=== PATIENT | male | born 1975 | race Caucasian/White ===

== ENCOUNTER → 2017-03-01 | Day surgery (SDC) | payer OTHER ==
[~2017-03-01] VITALS: Ht 175.3 cm; Wt 74.8 kg
[~2017-03-01] MED LIST: AMIT25TA9; BSP5T; CLON0.5T3 PO; CYCL10TA9 PO; GLYCOPYRROLATE 0.2 MG/ML (ROBINUL) 2 ML VIAL ONE; HURRICAINE EXT TUBE (BENZOCAINE) ONE; HURRICAINE EXT TUBE (BENZOCAINE) XX PRN; HYDR-3812; HYDR1TAB PO; LACTATED RINGERS 1,000 ML IV SCH; LINA145C PO; LORA10CA PO; METH4TAB PO; MIDAZOLAM 2 MG/2 ML (VERSED) VIAL ONE; MMT17NA NS; PANT40TA2 PO; PANT40TA3; SUCCINYLCHOLINE INJ 100 MG/5 ML SYR ONE; SUCR1TAB36 PO; TRZ50T PO; fluticasone; inhaler; klonopin; proPOfol 200 MG/20 ML (DIPRIVAN) VIAL IV ONE; trazodone
--- NOTE | 2017-03-01 10:54 | ED GI ---
General Chief Complaint: Abdominal/GI Problems Stated Complaint: FEELS LIKE SOMETHING LODGED IN THROAT Nursing Triage Note: WAS EATING GUMMY WORMS/BEARS ON TUESDAY FELT LIKE THEY DID NOT GOT ALL WAY DOWN. WAS SEEN IN [facility] ER AT THAT TIME,BUT CON'T TO HAVE FEELING LIKE PILLS AND FOOD NOT GOING ALL THE WAY DOWN Sepsis Screen: No Definite Risk Source of Information: Patient Exam Limitations: No Limitations History of Present Illness Time Seen By Provider: 10:52 Initial Comments To ER with esophageal foreign body sensation for 2 days. He was eating gummy bears on 02/27/17 in the evening. He felt as though they got stuck in his esophagus and when go down. About 5 hours later he went to the emergency room at [facility] where he was given some IV medications unknown what and a GI cocktail which temporarily relieved his symptoms. However he still feels as though he has difficulty with swallowing even with liquids such as water. States he feels like it gets stuck in his mid chest before going on down. He's never had this problem before. He does not report GERD symptoms. Timing/Duration: 1-2 Days Severity/Quality: Moderate Radiation: No Radiation Activities at Onset: None Associated Symptoms: No Nausea/Vomiting Allergies and Home Medications Allergies Coded Allergies: doxepin (Verified Allergy, Unknown, 03/01/17) Home Medications Hydrocodone/Acetaminophen 1 Each Tablet, #40 (Reported) Pantoprazole Sodium 40 Mg Tablet.dr, 40 MG PO DAILY, #60 Ref 3 take twice a day for two weeks and then once a day after that. Prescribed by: AMPARO MORTENSEN on 03/01/17 1345 Sucralfate 1 Gm Tablet, 1 GM PO QID, #120 Prescribed by: AMPARO MORTENSEN on 03/01/17 1345 Review of Systems Constitutional: see HPI EENTM: No Symptoms Reported Respiratory: No Symptoms Reported Cardiovascular: No Symptoms Reported Gastrointestinal: No Symptoms Reported Genitourinary: No Symptoms Reported Skin: no symptoms reported Psychiatric/Neurological: No Symptoms Reported Endocrine: No Symptoms Reported Hematologic/Lymphatic: No Symptoms Reported Past Qrnfhfo-Fcfima-Hxones Hx Patient Social History Recent Foreign Travel: No Contact w/Someone Who Travel: No Recent Infectious Disease Expo: No Seasonal Allergies Seasonal Allergies: Yes Surgeries HX Surgeries: No Respiratory Hx Respiratory Disorders: Yes (mild asthma) Respiratory Disorders: Asthma Cardiovascular Hx Cardiac Disorders: No Neurological Hx Neurological Disorders: No Genitourinary Hx Genitourinary Disorders: No Gastrointestinal Hx Gastrointestinal Disorders: Yes Gastrointestinal Disorders: Chronic Constipation Musculoskeletal Hx Musculoskeletal Disorders: No Endocrine Hx Endocrine Disorders: No HEENT HX ENT Disorders: Yes (SINUSITIS) Cancer Hx Cancer: No Psychosocial Hx Psychiatric Problems: Yes (EXTENSIVE PSYCH ISSUES--SELF DC'D ALL MEDICATIONS 3 MONTHS AGO. ) Integumentary HX Skin/Integumentary Disorder: No Blood Transfusions Hx Blood Disorders: No Physical Exam Vital Signs VS - Last 72 Hours, by Label 03/01/17 10:31 Temp 97.9 Pulse 80 Resp 18 B/P (MAP) 124/75 Pulse Ox 98 Capillary Refill : Less Than 3 Seconds General Appearance: WD/WN, no apparent distress HEENT: PERRL/EOMI, normal ENT inspection Neck: non-tender, full range of motion Respiratory: no respiratory distress, no accessory muscle use Cardiovascular: regular rate, rhythm, no murmur Gastrointestinal: normal bowel sounds, non tender, soft Extremities: normal range of motion, non-tender Neurologic/Psychiatric: alert, normal mood/affect, oriented x 3 Skin: normal color, warm/dry Progress/Results/Core Measures Results/Orders Lab Results Laboratory Tests Test 03/01/17 11:24 Range/Units White Blood Count 11.3 H 4.3-11.0 10^3/uL Red Blood Count 5.45 4.35-5.85 10^6/uL Hemoglobin 16.4 13.3-17.7 G/DL Hematocrit 48 40-54 % Mean Corpuscular Volume 89 80-99 FL Mean Corpuscular Hemoglobin 30 25-34 PG Mean Corpuscular Hemoglobin Concent 34 32-36 G/DL Red Cell Distribution Width 13.1 10.0-14.5 % Platelet Count 328 130-400 10^3/uL Mean Platelet Volume 9.1 7.4-10.4 FL Neutrophils (%) (Auto) 72 42-75 % Lymphocytes (%) (Auto) 21 12-44 % Monocytes (%) (Auto) 7 0-12 % Eosinophils (%) (Auto) 1 0-10 % Basophils (%) (Auto) 0 0-10 % Neutrophils # (Auto) 8.1 H 1.8-7.8 X 10^3 Lymphocytes # (Auto) 2.3 1.0-4.0 X 10^3 Monocytes # (Auto) 0.8 0.0-1.0 X 10^3 Eosinophils # (Auto) 0.1 0.0-0.3 10^3/uL Basophils # (Auto) 0.0 0.0-0.1 10^3/uL Sodium Level 139 135-145 MMOL/L Potassium Level 3.9 3.6-5.0 MMOL/L Chloride Level 102 98-107 MMOL/L Carbon Dioxide Level 29 21-32 MMOL/L Anion Gap 8 5-14 MMOL/L Blood Urea Nitrogen 13 7-18 MG/DL Creatinine 1.14 0.60-1.30 MG/DL Estimat Glomerular Filtration Rate > 60 BUN/Creatinine Ratio 11 Glucose Level 102 70-105 MG/DL Calcium Level 9.7 8.5-10.1 MG/DL Total Bilirubin 0.9 0.1-1.0 MG/DL Aspartate Amino Transf (AST/SGOT) 15 5-34 U/L Alanine Aminotransferase (ALT/SGPT) 13 0-55 U/L Alkaline Phosphatase 60 40-136 U/L Total Protein 7.7 6.4-8.2 GM/DL Albumin 4.9 H 3.2-4.5 GM/DL My Orders Orders - SEINA TAYLOR APRN Comprehensive Metabolic Panel (03/01/17 11:17) Cbc With Automated Diff (03/01/17 11:17) Succinylcholine Injection (Succinylcholi (03/01/17 11:24) Propofol Injection (Diprivan Injection) (03/01/17 11:24) Midazolam Injection (Versed Injection) (03/01/17 11:24) Vital Signs/I&O Vital Sign - Last 12Hours 03/01/17 10:31 Temp 97.9 Pulse 80 Resp 18 B/P (MAP) 124/75 Pulse Ox 98 Blood Pressure Mean: 91 Departure Communication Progress Notes 1151-Pt currently in endoscopy with Dr Renteria. Impression Impression: Primary Impression: Dysphagia Additional Impression: Gastritis Disposition: 01 HOME, SELF-CARE Condition: Stable Departure-Patient Inst. Decision time for Depature: 11:51 Referrals: MILTON BERNARD MD (PCP/Family) Primary Care Physician Patient Instructions: Gastritis (DC) Add. Discharge Instructions: 1. Return to ER for any fevers, severe chest pain, or other concerns 2. Follow-up with Dr. Renteria as directed 3. All discharge instructions reviewed with patient and/or family. Voiced understanding. Scripts Sucralfate (Carafate) 1 Gm Tablet 1 GM PO QID, #120 TAB Prov: AMPARO SAMANIEGO APRN 03/01/17 Pantoprazole Sodium (Protonix) 40 Mg Tablet. 40 MG PO DAILY, #60 TAB 3 Refills take twice a day for two weeks and then once a day after that. Prov: AMPARO SAMANIEGO APRN 03/01/17 SIENA TAYLOR APRN Mar 01, 2017 10:54
--- NOTE | 2017-03-01 11:25 | History & Physical-Surgical ---
History of Present Illness History of Present Illness Reason for visit/HPI This is a 42 year old male patient who eating some gummy worms on tuesday and felt it get stuck in his esophagus. Patient reports going to the [facility] ER where he was given a GI cocktail. Patient states that it made his throat numb and he thought he was better but he wasn't. Patient reports difficult swallowing food. He tried to eat a piece of chicken yesterday but it took him a while to swallow it. Patient reports some difficulty swallowing liquids but was able to do it without vomiting. Still feels like something is stuck in his throat. Date of Admission 03/01/17 Date Seen by Provider: Mar 01, 2017 Time Seen by Provider: 11:10 I consulted on this patient on 03/01/17 11:20 Attending Physician Admitting Physician iGl Kenny MD Consult Allergies and Home Medications Allergies Coded Allergies: doxepin (Verified Allergy, Unknown, 03/01/17) Home Medications Hydrocodone/Acetaminophen 1 Each Tablet, #40 (Reported) Pantoprazole Sodium 40 Mg Tablet., #30 (Reported) Past Fcntobb-Awnzwu-Koiljd Hx Patient Social History Alcohol Use: Occasionally Uses Recreational Drug Use: No Type Used: Electronic/Vapor Recent Foreign Travel: No Contact w/Someone Who Travel: No Recent Infectious Disease Expo: No Seasonal Allergies Seasonal Allergies: Yes Surgeries HX Surgeries: No Respiratory Hx Respiratory Disorders: Yes (mild asthma) Respiratory Disorders: Asthma Cardiovascular Hx Cardiac Disorders: No Neurological Hx Neurological Disorders: No Reproductive System Sexually Transmitted Disease: No Genitourinary Hx Genitourinary Disorders: No Gastrointestinal Hx Gastrointestinal Disorders: Yes Gastrointestinal Disorders: Chronic Constipation Musculoskeletal Hx Musculoskeletal Disorders: No Endocrine Hx Endocrine Disorders: No HEENT HX ENT Disorders: Yes (SINUSITIS) Cancer Hx Cancer: No Psychosocial Hx Psychiatric Problems: Yes (EXTENSIVE PSYCH ISSUES--SELF DC'D ALL MEDICATIONS 3 MONTHS AGO. ) Integumentary HX Skin/Integumentary Disorder: No Blood Transfusions Hx Blood Disorders: No Family Medical History Significant Family History: No Pertinent Family Hx Constitutional: see HPI EENTM: see HPI, throat pain Respiratory: no symptoms reported Cardiovascular: no symptoms reported Gastrointestinal: dysphagia Genitourinary: no symptoms reported Musculoskeletal: no symptoms reported Skin: no symptoms reported Psychiatric/Neurological: No Symptoms Reported Other Patient c/o right inguinal hernia that is reduced. States he take pain medicine for it. Physical Exam Vital Signs Vital Sign - Last 12Hours 03/01/17 10:31 Temp 97.9 Pulse 80 Resp 18 B/P (MAP) 124/75 Pulse Ox 98 Capillary Refill : Less Than 3 Seconds General Appearance: No Apparent Distress, WD/WN Neck: Full Range of Motion, Normal Inspection Respiratory: No Accessory Muscle Use, No Respiratory Distress Cardiovascular: Regular Rate, Rhythm Gastrointestinal: No Pulsatile Mass, Non Tender, Soft Extremity: Normal Capillary Refill, Non Tender, No Calf Tenderness, No Pedal Edema Neurologic/Psychiatric: Alert, Oriented x3 Skin: Normal Color, Warm/Dry Data Review Labs Laboratory Tests 03/01/17 11:24: White Blood Count 11.3H, Red Blood Count 5.45, Hemoglobin 16.4, Hematocrit 48, Mean Corpuscular Volume 89, Mean Corpuscular Hemoglobin 30, Mean Corpuscular Hemoglobin Concent 34, Red Cell Distribution Width 13.1, Platelet Count 328, Mean Platelet Volume 9.1, Neutrophils (%) (Auto) 72, Lymphocytes (%) (Auto) 21, Monocytes (%) (Auto) 7, Eosinophils (%) (Auto) 1, Basophils (%) (Auto) 0, Neutrophils # (Auto) 8.1H, Lymphocytes # (Auto) 2.3, Monocytes # (Auto) 0.8, Eosinophils # (Auto) 0.1, Basophils # (Auto) 0.0 Assessment/Plan Assessment/Plan Assessment/Plan Dysphagia Possible foreign body Patient to be Prepped for EGD. Dr. Renteria discussed with Patient and he is in agreement with treatment plan. After EGD, patient to be treated with Protonix and Carafate 1gm 4 times a day. Dexter- seen and evaluated in emergenyc dept. patient with sensation of something stuck in esophagus. patient started having problems on tuesday and then yesterday ate chicken and feeling since then as if still stuck. able to drink some liquids but very difficult to get it to go down. he has to change positions to get liquid to go down sometimes. Patient has tried gi cocktail which just numbed it tuesday. Was given protonix script but did not fill. Patient no other complaints at this time general no distress heart reg lungs nonlabored abdomen soft nontender no organomegaly ext nontender normal mood affect alert and oriented dysphagia possible foreign body discussed risks and benefits of egd to evaluate and understand and wishes to proceed plan egd all other indicated procedures. AMPARO SAMANIEGO APRN Mar 01, 2017 11:25 ADAMARIS RENTERIA DO Mar 01, 2017 11:48
[2017-03-01 11:31] LABS: BASOPHILS % (AUTO) 0 % (0-10); EOSINOPHILS # (AUTO) 0.1 10^3/uL (0.0-0.3); EOSINOPHILS % (AUTO) 1 % (0-10); LYMPHOCYTES # (AUTO) 2.3 X 10^3 (1.0-4.0); LYMPHOCYTES % (AUTO) 21 % (12-44); MEAN CORPUSCULAR HEMOGLOBIN 30 PG (25-34); MEAN CORPUSCULAR HGB CONC 34 G/DL (32-36); MEAN CORPUSCULAR VOLUME 89 FL (80-99); MEAN PLATELET VOLUME 9.1 FL (7.4-10.4); MONOCYTES # (AUTO) 0.8 X 10^3 (0.0-1.0); MONOCYTES % (AUTO) 7 % (0-12); NEUTROPHILS # (AUTO) 8.1 X 10^3 (1.8-7.8); NEUTROPHILS % (AUTO) 72 % (42-75); PLATELET COUNT 328 10^3/uL (130-400); RED BLOOD COUNT 5.45 10^6/uL (4.35-5.85); RED CELL DISTRIBUTION WIDTH 13.1 % (10.0-14.5); WHITE BLOOD COUNT 11.3 10^3/uL (4.3-11.0)
[2017-03-01 11:49] LABS: ALANINE AMINOTRANSFERASE 13 U/L (0-55); ALBUMIN 4.9 GM/DL (3.2-4.5); ANION GAP 8 MMOL/L (5-14); ASPARTATE AMINO TRANSFERASE 15 U/L (5-34); BILIRUBIN,TOTAL 0.9 MG/DL (0.1-1.0); BLOOD UREA NITROGEN 13 MG/DL (7-18); BUN/CREATININE RATIO 11; CALCIUM 9.7 MG/DL (8.5-10.1); CARBON DIOXIDE 29 MMOL/L (21-32); CHLORIDE 102 MMOL/L (98-107); CREATININE SERUM 1.14 MG/DL (0.60-1.30); GFR ESTIMATED > 60; GLUCOSE 102 MG/DL (70-105); POTASSIUM 3.9 MMOL/L (3.6-5.0); SODIUM 139 MMOL/L (135-145); TOTAL PROTEIN 7.7 GM/DL (6.4-8.2)
[2017-03-01 12:53] VITALS: BP 118/73
--- NOTE | 2017-03-01 13:47 | Discharge Inst-Simple/Standard ---
Discharge Inst-Standard Discharge Medications New, Converted or Re-Newed RX: RX on Chart Patient Instructions/Follow Up Plan of Care/Instructions/FU: Follow up with Dr. Renteria in 2-3 weeks. Take medication as directed. Clear liquid diet for the next 2 days Activity as Tolerated: Yes Discharge Diet: Liquid Diet AMPARO SAMANIEGO APRN Mar 01, 2017 13:47
[2017-03-01 14:30] VITALS: BP 119/71
--- NOTE | 2017-03-01 14:54 | Progress Note-Post Operative ---
Post-Operative Progess Note Surgeon (s)/Photo Optics Technician (s) Surgeon ADAMARIS DOSS DO Photo Optics Technician: na Pre-Operative Diagnosis dysphagia, possible foreign body Post-Operative Diagnosis duodenitis, gastritis, stomach cardia ulcers Procedure & Operative Findings Date of Procedure 03/01/17 Procedure Performed/Findings EGD c biopsies Anesthesia Type per bottomer operator Estimated Blood Loss Estimated blood loss (mL): none Specimens/Packing Specimens Removed antrum, cardia of stomach ADAMARIS DOSS DO Mar 01, 2017 14:54
[2017-03-01 15:00] VITALS: BP 120/81
[2017-03-01 15:41] VITALS: BP 120/81
--- NOTE | 2017-03-02 11:14 | OPERATIVE REPORT ---
PROCEDURE PHYSICIAN: ADAMARIS DOSS DATE OF PROCEDURE: 03/01/2017 PREOPERATIVE DIAGNOSIS: Dysphagia, possible foreign body in the esophagus. POSTOPERATIVE DIAGNOSES: 1. Duodenitis. 2. Gastritis. 3. Cardia of stomach ulcers. PROCEDURE: EGD with biopsies. SURGEON: Dexter. ANESTHESIA: Per WIRELESS SALES REPRESENTATIVE. ESTIMATED BLOOD LOSS: None. COMPLICATIONS: None. INDICATIONS: The patient is a 42-year-old male who was having significant difficulty with swallowing. He has the feeling that something was still stuck in the esophagus. He was seen in the emergency department on Tuesday in outlying facility and has continued to have problems. He tried eating chicken yesterday and since eating chicken, he feels as if something was even more significantly stuck in the esophagus. He is able swallow some liquids; however, he has extreme difficulty doing so and has reposition himself multiple times in order to get it to go down with small amount at a time. He was recommended to have EGD for further evaluation. He understands the risks and benefits and wishes to proceed. Consent was signed on the chart. PROCEDURE: The patient was taken to the endoscopy suite, placed in left lateral recumbent position after being intubated for airway protection. Timeout was performed. The scope was then inserted in the mouth, down the esophagus, stomach and into the duodenum without difficulty. The duodenum had some inflammation more in the first portion of the duodenum. There were no polyps, masses or ulcerations visualized. The scope was then slowly retracted back into the stomach which was further insufflated noting erythematous changes of the stomach. Biopsies of the antrum were obtained. The scope was also retroflexed noting 2 ulcers up in the cardia, which biopsy of one of these were obtained. The scope was then returned to its normal position and then slowly withdrawn back to the distal esophagus, which had normal appearance. There were no polyps, masses or ulcerations. The scope was slowly retracted back until completely removed. There was no stricture and no foreign body visualized. RECOMMENDATIONS: The patient will be placed on Protonix and Carafate. The patient is to say on a liquid diet for the next 2 or 3 days. The patient will follow-up in the office in approximately 2 weeks. If the patient has any problems prior to follow-up appointment, he should be reevaluated at that time. Job ID: [id number] Dictated Date: 03/01/2017 14:58:01 Slitter Processed Film Date: 03/02/2017 11:06:17 / hyacinth
== END | disposition home or self-care (01) ==
LOC: EDUNIT# 10:22 → ER 10:24 → SDC 11:33
PROVIDERS: ATTEND Surgery
DX: K29.70 Gastritis, unspecified, without bleeding (principal); K29.80 Duodenitis without bleeding; K25.9 Gastric ulcer, unspecified as acute or chronic, without hemorrhage or perforation; J45.909 Unspecified asthma, uncomplicated; F41.9 Anxiety disorder, unspecified; K59.00 Constipation, unspecified; Z79.899 Other long term (current) drug therapy
CPT/HCPCS: 36415; 80053; 85025

== ENCOUNTER → 2017-03-23 | Outpatient (CLI) | payer OTHER ==
[~2017-03-23] MED LIST changes: -GLYCOPYRROLATE 0.2 MG/ML (ROBINUL) 2 ML VIAL ONE; -HURRICAINE EXT TUBE (BENZOCAINE) ONE; -HURRICAINE EXT TUBE (BENZOCAINE) XX PRN; -LACTATED RINGERS 1,000 ML IV SCH; -MIDAZOLAM 2 MG/2 ML (VERSED) VIAL ONE; -SUCCINYLCHOLINE INJ 100 MG/5 ML SYR ONE; -proPOfol 200 MG/20 ML (DIPRIVAN) VIAL IV ONE
--- NOTE | 2017-03-23 18:53 | Diagnostic Imaging Report ---
INDICATION: Right groin pain. EXAMINATION: Ultrasound of the right groin. COMPARISON: There are no prior studies available for comparison. FINDINGS: Reportedly, there is clinical concern regarding a hernia. On this exam, there is no sign of a segment of the bowel extending into the inguinal canal. There is no mass or cyst noted either. IMPRESSION: There is no acute abnormality of the right groin and there is no sign of herniation of the bowel into the inguinal canal. Dictated by: Dictated on workstation # [id number]
== END ==
LOC: RAD 14:28
PROVIDERS: ATTEND Surgery
DX: R10.31 Right lower quadrant pain (principal)
CPT/HCPCS: 76999

== ENCOUNTER → 2019-02-12 | Outpatient (REF) ==
[~2019-02-12] MED LIST changes: +ACHD5005; -HYDR-3812
--- NOTE | 2019-02-12 12:45 | Diagnostic Imaging Report ---
INDICATION: Injury to the left knee. TIME OF EXAM: 12:12 p.m. FINDINGS: Three views of the left knee were obtained. Alignment is normal. Joint spaces are well maintained. The articular surfaces are smooth. No fracture, dislocation, or effusion is seen. IMPRESSION: No acute abnormality is detected. Dictated by: Dictated on workstation # [id number]
== END | disposition home or self-care (01) ==
LOC: OCC 11:58
PROVIDERS: ATTEND Family Medicine
CPT/HCPCS: 73562

== ENCOUNTER → 2021-07-06 | Outpatient (REF) ==
[~2021-07-06] MED LIST changes: -PANT40TA3; +PANT40TA52
--- NOTE | 2021-07-06 10:51 | Diagnostic Imaging Report ---
ELBOW, LEFT, 3 VIEWS INDICATION: Left elbow pain. COMPARISON: None available. TECHNIQUE: Three views of the left elbow. FINDINGS: No acute fracture. Subchondral lucency in the capitellum. Enthesopathy is present along the medial aspect of the trochlea, which may be due to old collateral ligament injury. No mineralized intra-articular bodies. No features of elbow joint effusion. IMPRESSION: 1. No acute fracture around the left elbow. 2. Potential osteochondral lesion in the capitellum. If it will alter the patient's management, consider nonemergent MRI of the left elbow without contrast for further evaluation. Dictated by: Dictated on workstation # [id number]
== END ==
LOC: OCC 09:57
PROVIDERS: ATTEND Family Medicine
DX: M25.522 Pain in left elbow (principal)
CPT/HCPCS: 73080

== ENCOUNTER → 2021-12-29 | Outpatient (RCR) | payer OTHER | END | disposition home or self-care (01) | PROVIDERS: ATTEND Family Medicine | DX: M77.02 Medial epicondylitis, left elbow (principal) ==

== ENCOUNTER → 2022-01-08 | Outpatient (REF) ==
--- NOTE | 2022-01-08 12:49 | Diagnostic Imaging Report ---
PROCEDURE: MRI left upper extremity without contrast. TECHNIQUE: Multiplanar, multisequence non contrast-enhanced MRI of the left upper extremity was accomplished. INDICATION: Pain, injury in July. EXAMINATION: MRI left elbow 01/08/2022 FINDINGS: There is a marker overlying the medial aspect of the elbow at the site of pain. Underlying the marker the common flexor tendon origin appears intact. The common extensor tendon origin is also intact. The ulnar collateral ligament grossly intact on this noncontrast examination. The distal brachialis and biceps tendons intact as visualized. The triceps tendon is intact. The osseous structures demonstrate no acute abnormalities. There is a small amount of joint fluid which is predominantly adjacent to the radial head extending proximal to the radial tuberosity. Musculature appears unremarkable. Small subchondral cystic changes noted within the radial head and adjacent capitellum consistent with osteoarthritic changes. IMPRESSION: 1. Visualized tendons intact with the ulnar collateral ligament also intact. 2. Degenerative changes with a small joint effusion noted. Dictated by: Dictated on workstation # [id number]
== END | disposition home or self-care (01) ==
LOC: OCC 10:52
PROVIDERS: ATTEND Nurse Practitioner Family
DX: Z01.818 Encounter for other preprocedural examination (principal)
CPT/HCPCS: 73221

== ENCOUNTER 2022-01-13 12:59 | Outpatient (RCR) | payer OTHER | END 2022-01-13 13:50 | disposition home or self-care (01) | PROVIDERS: ATTEND Family Medicine | DX: M77.02 Medial epicondylitis, left elbow (principal) ==